=== PATIENT | male | born 1960 | race Caucasian/White ===

== ENCOUNTER 2017-07-22 07:49 | Day surgery (SDC) | payer OTHER ==
[2017-07-22 08:13] VITALS: BMI 29.7
[2017-07-22 08:48] VITALS: TEMP 97.6
[2017-07-22] MEDS ORDERED: Propofol 10 mg/ml Inj (20 ML) ONE (11:29)
[2017-07-22] MEDS ORDERED: Lactated Ringer's 1,000 ML IV ONE (11:30)
[2017-07-22 14:36] VITALS: BP 148/85; PULSE 67; RESP 15; O2SAT 99
== END 2017-07-22 13:20 | disposition home or self-care (01) ==
LOC: C.ENDO 07:49
PROVIDERS: ATTEND Internal Medicine Gastroenterology
DX: R10.13 Epigastric pain (principal); E11.9 Type 2 diabetes mellitus without complications; I10 Essential (primary) hypertension; E78.5 Hyperlipidemia, unspecified; E78.00 Pure hypercholesterolemia, unspecified; Z80.0 Family history of malignant neoplasm of digestive organs; Z83.3 Family history of diabetes mellitus; Z82.49 Family history of ischemic heart disease and other diseases of the circulatory system; F17.210 Nicotine dependence, cigarettes, uncomplicated
CPT/HCPCS: 43239; 82948; 88305; 88342; J2001; J2704; J7120

== ENCOUNTER 2017-09-02 11:56 | Inpatient (IN) | payer OTHER ==
[2017-09-02 11:57] VITALS: BMI 29.7
[2017-09-02] MEDS ORDERED: Sodium Chloride 0.9% 1,000 ML IV ONE (12:26)
--- NOTE | 2017-09-02 12:30 | C.PDOC ---
History Of Present Illness 57 year old male, with a past medical history of hypertension and diabetes, presents to the emergency department complaining of cough, congestion, headache , malaise, body aches and cough onset since yesterday. He reports cough associated with chest pain and SOB today. Patient denies taking any medication for symptoms. Patient states his is also ill in the ER sick with cough, vomiting and diarrhea. He denies any nausea, vomit or diarrhea. PMD: Alicia Rocha Time Seen by Provider: 09/02/17 12:13 Chief Complaint (Nursing): Chest Pain History Per: Patient History/Exam Limitations: no limitations Onset/Duration Of Symptoms: Days (x1) Current Symptoms Are (Timing): Still Present Exacerbating Factors: Other (coughing) Past Medical History Reviewed: Historical Data, Nursing Documentation, Vital Signs Vital Signs: Last Vital Signs Temp 100.0 F H 09/02/17 15:02 Pulse 112 H 09/02/17 15:02 Resp 16 09/02/17 15:02 BP 112/79 09/02/17 15:02 Pulse Ox 96 09/02/17 16:26 - Medical History PMH: COPD (NEWLY DX COPD), Diabetes, Gastritis, Gastrointestinal Ulcer, HTN, Hypercholesterolemia Surgical History: No Surg Hx - [facility] Procedures COLONOSCOPY (07/06/13) GROUP PSYCHOTHERAPY (03/24/16) INDIVIDUAL PSYCHOTHERAPY, COGNITIVE-BEHAVIORAL (03/24/16) LOCAL EXCIS BREAST LES (06/14/13) OTHER SKIN & SUBQ I D (01/21/13) PERCUTAN NEEDLE BIOPSY OF BREAST (05/30/13) Family History: States: Unknown Family Hx - Social History Hx Tobacco Use: Yes Hx Alcohol Use: Yes Hx Substance Use: No - Immunization History Hx Tetanus Toxoid Vaccination: No Hx Influenza Vaccination: No Hx Pneumococcal Vaccination: No Review Of Systems Constitutional: Positive for: Malaise ENT: Positive for: Nose Congestion Cardiovascular: Positive for: Chest Pain (w/ cough) Respiratory: Positive for: Cough, Shortness of Breath, Pleuritic Pain. Negative for: Sputum, Wheezing Gastrointestinal: Negative for: Nausea, Vomiting, Diarrhea Neurological: Positive for: Headache Physical Exam - Physical Exam Appears: Non-toxic, No Acute Distress Skin: Normal Color, Warm, Dry Head: Atraumatic, Normacephalic Eye(s): bilateral: Normal Inspection, PERRL, EOMI Ear(s): Bilateral: Normal Nose: Normal Oral Mucosa: Moist Throat: Normal Neck: Normal ROM Lymphatic: Normal Exam, No Adenopathy Chest: Symmetrical, No Tenderness Cardiovascular: Other (tachycardic) Respiratory: No Rales, Rhonchi, No Wheezing Gastrointestinal/Abdominal: Normal Exam, Bowel Sounds, Soft, No Tenderness, No Distention, No Guarding Back: Normal Inspection, No CVA Tenderness Extremity: Normal ROM, No Pedal Edema, No Deformity, No Swelling Pulses: Left Radial: Normal Neurological/Psych: Oriented x3, Normal Speech Gait: Steady ED Course And Treatment - Laboratory Results Result Diagrams: 09/02/17 12:40 09/02/17 12:40 Lab Interpretation: Abnormal ECG: Interpreted By Me, Viewed By Me ECG Rhythm: Sinus Tachycardia ECG Interpretation: No Acute Changes Rate From EC O2 Sat by Pulse Oximetry: 96 (RA) Pulse Ox Interpretation: Normal Progress Note: 12:45 CXR. FINDINGS: LUNGS: No active pulmonary disease. PLEURA: No significant pleural effusion identified. No pneumothorax apparent. CARDIOVASCULAR: Normal. OSSEOUS STRUCTURES: No significant abnormalities. VISUALIZED UPPER ABDOMEN: Normal. OTHER FINDINGS: None. IMPRESSION: No active disease. Medical Decision Making Medical Decision Making: Initial Impression: Fever, cough congestion Plan: --EKG --Labs --Chest two views (PA/LAT) [RAD] --Duoneb 3 ml IH Q15M --Sodium Chloride 1L bolus --Urinalysis Progress: Labs reviewed and abnormal, showing leukocytosis and bands. Ordered VBG and cultures. Still pending UA and Flu Labs show lactate of 3.4. Code sepsis called. Additional orders placed for IV fluids as per protocol Patient evaluated at bedside and reports feeling slightly better, hemodynamically stable. Disposition - Disposition Disposition: HOSPITALIZED Disposition Time: 15:00 Condition: STABLE - POA Present On Arrival: Poor Glycemic Control Core Measure Indicators: Code Sepsis - Clinical Impression Clinical Impression: Urinary tract infection - Scribe Statement The provider has reviewed the documentation as recorded by the Adalid Huang Decision To Admit - Pt Status Changed To: Hospital Disposition Of: Inpatient - Admit Certification Admit to Inpatient:: After my assessment, the patient will require hospitalization for at least two midnights. This is because of the severity of symptoms shown, intensity of services needed, and/or the medical risk in this patient being treated as an outpatient. - InPatient: Physician Admission Certification: I certify that this patient requires 2 or more midnights of care for the following reason:: Patient with fever, tachycardia, abnormal labs including leukocytosis and bandemia. code sepsis. infectious source is urinary, patient has prior infections. Patient needs IV abx - . Bed Request Type: Regular Admitting Physician: Santi Najera Patient Diagnosis: Urinary tract infection
[2017-09-02 12:45] LABS: BASO % 0.4 % (0.0-2.0); EOS % 0.3 % (0.0-4.0); HEMOGLOBIN 13.9 g/dL (12.0-18.0); LYMPH # 0.5 K/uL (1.0-4.3); LYMPH % 4.3 % (20.0-40.0); MEAN CELL VOLUME 84.2 fL (80.0-94.0); MEAN CORPUSCULAR HEMOGLOBIN 30.2 pg (27.0-31.0); MEAN CORPUSCULAR HGB CONC 35.9 g/dL (33.0-37.0); MEAN PLATELET VOLUME 8.7 fL (7.2-11.7); MONO # 0.5 K/uL (0.0-0.8); MONO % 4.7 % (0.0-10.0); NEUT # 10.2 K/uL (1.8-7.0); NEUT % 90.3 % (50.0-75.0); PLATELET COUNT 186 K/uL (130-400); RBC 4.61 Mil/uL (4.40-5.90); RED CELL DISTRIBUTION WIDTH 13.2 % (11.5-14.5); WHITE BLOOD COUNT 11.2 K/uL (4.8-10.8)
--- NOTE | 2017-09-02 12:46 | RAD ---
HISTORY: SOB, cough COMPARISON: 05/19/2013 TECHNIQUE: Chest PA and lateral FINDINGS: LUNGS: No active pulmonary disease. PLEURA: No significant pleural effusion identified. No pneumothorax apparent. CARDIOVASCULAR: Normal. OSSEOUS STRUCTURES: No significant abnormalities. VISUALIZED UPPER ABDOMEN: Normal. OTHER FINDINGS: None. IMPRESSION: No active disease.
[2017-09-02 13:02] LABS: ALB/GLOB RATIO 1.2 (1.0-2.1); ALBUMIN 4.3 g/dL (3.5-5.0); ALT/SGPT 56 U/L (21-72); AST/SGOT 44 U/L (17-59); BLOOD UREA NITROGEN 17 mg/dL (9-20); CALCIUM 9.3 mg/dl (8.6-10.4); GFR AFRICAN-AMERICAN > 60; GFR NON-AFRICAN AMERICAN > 60
[2017-09-02] MEDS: Albuterol-Ipratrop 3 mg / 0.5 (3 ml) UD IH SCH ×2 (13:04→13:24)
[2017-09-02 13:08] LABS: B-TYPE NATRIURETIC PEPTIDE 67.5 pg/mL (0-900)
[2017-09-02 13:14] LABS: BANDS 23 % (0-2); EOSINOPHIL 1 % (0-4); LYMPHOCYTE 7 % (20-40); MONOCYTE 2 % (0-10); NEUTROPHIL 67 % (50-75); PLATELET ESTIMATE NORMAL (NORMAL); TOTAL CELLS COUNTED 100
[2017-09-02] MEDS ORDERED: Sodium Chloride 0.9% 1,000 ML ONE (13:14)
[2017-09-02] MEDS ORDERED: Albuterol-Ipratrop 3 mg / 0.5 (3 ml) UD ONE (13:18)
[2017-09-02 13:25] LABS: INR 1.1; PROTHROMBIN TIME 12.4 SECONDS (9.7-12.2)
[2017-09-02 14:17] LABS: VENOUS BLOOD GAS PCO2 28 mmHg (40-60); VENOUS BLOOD GAS PO2 103 mm/Hg (30-55); VENOUS BLOOD PH 7.47 (7.32-7.43)
[2017-09-02 14:20] LABS: SQUAMOUS EPITHIAL 2 /hpf (0-5); URINE BACTERIA FEW (<OCC); URINE BILIRUBIN NEGATIVE (NEGATIVE); URINE BLOOD 1+ (NEGATIVE); URINE CLARITY Hazy (Clear); URINE COLOR Yellow (YELLOW); URINE GLUCOSE (UA) 3+ mg/dL (Normal); URINE LEUKOCYTE ESTERASE 3+ Leu/uL (Negative); URINE PROTEIN 1+ mg/dL (NEGATIVE); URINE UROBILINOGEN NORMAL mg/dL (0.2-1.0)
[2017-09-02] MEDS ORDERED: cefTRIAXone IV 1 gm in Dextros 50 ML IVPB STA (14:24)
[2017-09-02] MEDS ORDERED: SODIUM CHLORIDE 0.9% IV SCH (14:30)
[2017-09-02] MEDS ORDERED: cefTRIAXone IV 1 gm in Dextros 50 ML IVPB ONE (14:38)
[2017-09-02] MEDS ORDERED: Sodium Chloride 0.9% 1,000 ML IV SCH (15:45)
[2017-09-02] MEDS ORDERED: Albuterol-Ipratrop 20 mcg/actuation (4 g) IH SCH (16:15)
[2017-09-02] MEDS: Piperacillin/Tazobact 3.375 GM in Sodium Chloride 0.9% 100 ML IVPB SCH ×2 (16:21→22:53)
[2017-09-02] MEDS ORDERED: Magnesium Sulfate 1 gm in D5W 1 GM/100 ML BAG IVPB SCH (16:30)
[2017-09-02] MEDS: Vancomycin 1 gm/NS 200 ml 1 GM/200 ML BAG IVPB SCH (17:04)
[2017-09-02] MEDS: (Novolog) Insulin Aspart, Recombinant 100 u/ml 10 ml vial SC SCH ×2 (17:05→21:57)
[2017-09-02] MEDS ORDERED: SODIUM CHLORIDE 0.9% IV ONE (17:31)
[2017-09-02 17:46] LABS: VENOUS BLOOD GAS BASE EXCESS -2.5 mmol/L (0.0-2.0); VENOUS BLOOD GAS PCO2 35 mmHg (40-60); VENOUS BLOOD GAS PO2 49 mm/Hg (30-55)
--- NOTE | 2017-09-02 17:54 | CP.PCM.HP ---
<Bianka Hoover - Last Filed: 09/02/17 18:35> History of Present Illness - History of Present Illness History of Present Illness: CC: Cough and flu like symptoms HPI: Patient is a 57 year old male with past medical history of hypertension, HLD and diabetes who presents to the ED with complaint of productive cough ( white mucous), runny nose and bodyache that started yesterday. Patient reports associate symptoms of chest discomfort with cough, headache, vomiting episode x1 and chills. Patient reports that he took some cough syrup, which provided mild relieve. Patient admits chest discomfort, chills, cough, nausea, vomiting X1, headache and bodyaches. In addition, patient reports that his was just recently discharge from the hospital after treatment for flu. PMHx: hypertension, HLD and diabetes PSHx: Left breast excision, Buttocks furuncle removal FHx: Father (Cirrhosis, at age 47 yrs), mother ( Asthma, DM and heart problems ) Medications: Metformin 1,000mg PO BID, Lisinopril 2.5mg PO daily, simvastatin 40mg PO HS, ASA 81mg PO daily, protonix 40mg PO daily Allergies: NKDA Social hx: lives with . 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 Used tobacco for 10 years, 1ppd, Social ETOH (5 beers per weekend) and occasional marijuana use Present on Admission - Present on Admission Any Indicators Present on Admission: No Review of Systems - Constitutional Constitutional: Chills, Headache, Malaise, Weakness. absent: Fever - EENT Eyes: absent: Blurred Vision, Change in Vision Ears: absent: Dizziness - Cardiovascular Cardiovascular: Dyspnea. absent: Chest Pain, Chest Pain at Rest, Dyspnea on Exertion, Edema, Lightheadedness, Orthopnea, Palpitations, Syncope - Respiratory Respiratory: Cough, Pain with Coughing. absent: Hemoptysis, Dyspnea on Exertion , Wheezing, Snoring - Gastrointestinal Gastrointestinal: Vomiting. absent: Abdominal Pain, Cramping, Diarrhea, Loose Stools, Nausea - Musculoskeletal Musculoskeletal: Myalgias - Neurological Neurological: Headaches. absent: Dizziness - Endocrine Endocrine: Fatigue. absent: Palpitations Past Patient History - Past Medical History & Family History Past Medical History?: Yes - Past Social History Smoking Status: Light Smoker < 10 Cigarettes Daily - CARDIAC Hx Hypercholesterolemia: Yes Hx Hypertension: Yes - PULMONARY Hx Chronic Obstructive Pulmonary Disease (COPD): Yes (NEWLY DX COPD) - HEENT Hx HEENT Problems: No Other/Comment: BIFOCALS - RENAL Hx Chronic Kidney Disease: No - ENDOCRINE/METABOLIC Hx Endocrine Disorders: Yes Hx Diabetes Mellitus Type 2: Yes - INTEGUMENTARY Hx Dermatological Problems: Yes Other/Comment: VERTIGLIO - MUSCULOSKELETAL/RHEUMATOLOGICAL Hx Fractures: No - GASTROINTESTINAL Hx Gastritis: Yes - PSYCHIATRIC Hx Substance Use: No - SURGICAL HISTORY Hx Surgeries: Yes Other/Comment: ABCESS REMOVED BUTTOCK. RIGHT BREAST BEGNIGN TUMOR REMOVED. - ANESTHESIA Hx Anesthesia: Yes Hx Anesthesia Reactions: No Hx Malignant Hyperthermia: No Meds Allergies/Adverse Reactions: Allergies Allergy/AdvReac Type Severity Reaction Status Date / Time No Known Allergies Allergy Verified 09/02/17 12:22 Physical Exam - Constitutional Appears: No Acute Distress - Head Exam Head Exam: ATRAUMATIC, NORMAL INSPECTION - Eye Exam Eye Exam: EOMI, Normal appearance, PERRL - ENT Exam ENT Exam: Mucous Membranes Moist - Respiratory Exam Respiratory Exam: Clear to Auscultation Bilateral, NORMAL BREATHING PATTERN. absent: Decreased Breath Sounds, Rales, Rhonchi, Wheezes, Respiratory Distress, Stridor - Cardiovascular Exam Cardiovascular Exam: Tachycardia, REGULAR RHYTHM, +S1, +S2. absent: Systolic Murmur - GI/Abdominal Exam GI & Abdominal Exam: Normal Bowel Sounds, Soft. absent: Tenderness - Extremities Exam Extremities exam: Positive for: normal inspection. Negative for: calf tenderness, pedal edema - Neurological Exam Neurological exam: Alert, Oriented x3 - Psychiatric Exam Psychiatric exam: Normal Affect - Skin Skin Exam: Normal Color Results - Vital Signs Recent Vital Signs: Last Vital Signs Temp 100.0 F H 09/02/17 15:02 Pulse 112 H 09/02/17 15:02 Resp 16 09/02/17 15:02 BP 112/79 09/02/17 15:02 Pulse Ox 96 09/02/17 16:31 - Labs Result Diagrams: 09/02/17 12:40 09/02/17 12:40 Labs: Laboratory Results - last 24 hr 09/02/17 09/02/17 09/02/17 12:08 12:40 12:40 WBC 11.2 H RBC 4.61 Hgb 13.9 Hct 38.8 MCV 84.2 MCH 30.2 MCHC 35.9 RDW 13.2 Plt Count 186 MPV 8.7 Neut % (Auto) 90.3 H Lymph % (Auto) 4.3 L [place] % (Auto) 4.7 Eos % (Auto) 0.3 Baso % (Auto) 0.4 Neut # (Auto) 10.2 H Lymph # (Auto) 0.5 L [place] # (Auto) 0.5 Eos # (Auto) 0.0 Baso # (Auto) 0.0 Neutrophils % (Manual) 67 Band Neutrophils % 23 H* Lymphocytes % (Manual) 7 L Monocytes % (Manual) 2 Eosinophils % (Manual) 1 Differential Comment Platelet Estimate Normal PT 12.4 H INR 1.1 APTT 27 pO2 VBG pH VBG pCO2 VBG HCO3 VBG Total CO2 VBG O2 Sat (Calc) VBG Base Excess VBG Potassium Glucose Lactate Sodium Potassium Chloride Carbon Dioxide Anion Gap BUN Creatinine Est GFR ( Amer) Est GFR (Non-Af Amer) POC Glucose (mg/dL) 234 H Random Glucose Calcium Phosphorus Magnesium Total Bilirubin AST ALT Alkaline Phosphatase NT-Pro-B Natriuret Pep Total Protein Albumin Globulin Albumin/Globulin Ratio Venous Blood Potassium Urine Color Urine Clarity Urine pH Ur Specific [place] Urine Protein Urine Glucose (UA) Urine Ketones Urine Blood Urine Nitrate Urine Bilirubin Urine Urobilinogen Ur Leukocyte Esterase Urine WBC (Auto) Urine RBC (Auto) Ur Squamous Epith Cells Urine Bacteria Influenza Typ A,B (EIA) 09/02/17 09/02/17 09/02/17 12:40 14:05 14:09 WBC RBC Hgb Hct MCV MCH MCHC RDW Plt Count MPV Neut % (Auto) Lymph % (Auto) [place] % (Auto) Eos % (Auto) Baso % (Auto) Neut # (Auto) Lymph # (Auto) [place] # (Auto) Eos # (Auto) Baso # (Auto) Neutrophils % (Manual) Band Neutrophils % Lymphocytes % (Manual) Monocytes % (Manual) Eosinophils % (Manual) Differential Comment Platelet Estimate PT INR APTT pO2 VBG pH VBG pCO2 VBG HCO3 VBG Total CO2 VBG O2 Sat (Calc) VBG Base Excess VBG Potassium Glucose Lactate Sodium 135 Potassium 4.0 Chloride 100 Carbon Dioxide 19 L Anion Gap 21 H BUN 17 Creatinine 0.7 L Est GFR ( Amer) > 60 Est GFR (Non-Af Amer) > 60 POC Glucose (mg/dL) Random Glucose 243 H Calcium 9.3 Phosphorus Magnesium Total Bilirubin 0.9 AST 44 ALT 56 Alkaline Phosphatase 62 NT-Pro-B Natriuret Pep 67.5 Total Protein 7.9 Albumin 4.3 Globulin 3.6 Albumin/Globulin Ratio 1.2 Venous Blood Potassium Urine Color Yellow Urine Clarity Hazy Urine pH 5.0 Ur Specific [place] 1.023 Urine Protein 1+ H Urine Glucose (UA) 3+ H Urine Ketones Negative Urine Blood 1+ H Urine Nitrate Negative Urine Bilirubin Negative Urine Urobilinogen Normal Ur Leukocyte Esterase 3+ H Urine WBC (Auto) 88 H Urine RBC (Auto) 4 H Ur Squamous Epith Cells 2 Urine Bacteria Few H Influenza Typ A,B (EIA) Negative for flu a/b 09/02/17 09/02/17 14:14 14:59 WBC RBC Hgb Hct MCV MCH MCHC RDW Plt Count MPV Neut % (Auto) Lymph % (Auto) [place] % (Auto) Eos % (Auto) Baso % (Auto) Neut # (Auto) Lymph # (Auto) [place] # (Auto) Eos # (Auto) Baso # (Auto) Neutrophils % (Manual) Band Neutrophils % Lymphocytes % (Manual) Monocytes % (Manual) Eosinophils % (Manual) Differential Comment Platelet Estimate PT INR APTT pO2 103 H VBG pH 7.47 H VBG pCO2 28 L VBG HCO3 23.4 VBG Total CO2 21.3 L VBG O2 Sat (Calc) 99.4 H VBG Base Excess -2.0 L VBG Potassium 3.7 Glucose 229 H Lactate 3.8 H Sodium 137.0 Potassium Chloride 104.0 Carbon Dioxide Anion Gap BUN Creatinine Est GFR ( Amer) Est GFR (Non-Af Amer) POC Glucose (mg/dL) Random Glucose Calcium Phosphorus 1.8 L Magnesium 1.1 L Total Bilirubin AST ALT Alkaline Phosphatase NT-Pro-B Natriuret Pep Total Protein Albumin Globulin Albumin/Globulin Ratio Venous Blood Potassium 3.7 Urine Color Urine Clarity Urine pH Ur Specific [place] Urine Protein Urine Glucose (UA) Urine Ketones Urine Blood Urine Nitrate Urine Bilirubin Urine Urobilinogen Ur Leukocyte Esterase Urine WBC (Auto) Urine RBC (Auto) Ur Squamous Epith Cells Urine Bacteria Influenza Typ A,B (EIA) Assessment & Plan (1) Sepsis Assessment and Plan: Possibly secondary to UT1 On admission: UA: Nitrate negative, LE:3+, WBC:88` Lactate: 3.8-->3.0, continue to monitor Febrile: Tmax (100.4) and Tacycardia (112) Management: * NS @ 150mls/hr * Vanco 1gm IV daily * Zosyn 3.375gm IV Q6H * Tylenol 650mg PO Q6H prn (fever>100.4) Status: Acute (2) Cough Assessment and Plan: Associated with shortness of breath: * Robitussin DM 10ml PO Q4H PRN * Home medication: Combivent 1 puff RQ12H * f/U Strep pneumonaie, legionella, mycoplasma Status: Acute (3) UTI (urinary tract infection) Assessment and Plan: UA: Nitrate negative, LE:3+, WBC:88 f/u urine culture, blood culture * NS @ 150mls/hr * Vanco 1gm IV daily * Zosyn 3.375gm IV Q6H Status: Acute (4) Flu-like symptoms Assessment and Plan: Rapid flu test negative Tamiflu 75mg PO BID Status: Acute (5) Hypertension Assessment and Plan: Continue home medication: Lisinopril 2.5mg PO daily Status: Acute (6) Hyperlipidemia Assessment and Plan: Crestor 10mg PO daily Status: Acute (7) Diabetes mellitus Assessment and Plan: f/U HgbA1C Accuchecks Metformin 1000mg PO BID ISS- Low dose Hypoglycemia protocol Status: Acute (8) Electrolyte disturbance Assessment and Plan: Hypomagnesemia and hypophosphatemia * Mg sulfate 1GM IV Q4H, 2 doses * Neutra-Phos 1 packet q6h 2 doses * monitor with am labs Status: Acute (9) Prophylactic measure Assessment and Plan: GI: Protonix 40mg PO daily DVT: scds Aspirin 81mg PO daily Heart healthy diet All plans and management discussed with Dr. Najera Status: Acute <Santi Najera H - Last Filed: 09/03/17 07:11> Results - Vital Signs Recent Vital Signs: Last Vital Signs Temp 98.2 F 09/03/17 00:09 Pulse 111 H 09/03/17 00:09 Resp 20 09/03/17 00:09 BP 167/91 H 09/03/17 00:09 Pulse Ox 96 09/03/17 00:09 - Labs Result Diagrams: 09/02/17 12:40 09/02/17 12:40 Labs: Laboratory Results - last 24 hr 09/02/17 09/02/17 09/02/17 12:08 12:40 12:40 WBC 11.2 H RBC 4.61 Hgb 13.9 Hct 38.8 MCV 84.2 MCH 30.2 MCHC 35.9 RDW 13.2 Plt Count 186 MPV 8.7 Neut % (Auto) 90.3 H Lymph % (Auto) 4.3 L [place] % (Auto) 4.7 Eos % (Auto) 0.3 Baso % (Auto) 0.4 Neut # (Auto) 10.2 H Lymph # (Auto) 0.5 L [place] # (Auto) 0.5 Eos # (Auto) 0.0 Baso # (Auto) 0.0 Neutrophils % (Manual) 67 Band Neutrophils % 23 H* Lymphocytes % (Manual) 7 L Monocytes % (Manual) 2 Eosinophils % (Manual) 1 Differential Comment Platelet Estimate Normal PT 12.4 H INR 1.1 APTT 27 pO2 VBG pH VBG pCO2 VBG HCO3 VBG Total CO2 VBG O2 Sat (Calc) VBG Base Excess VBG Potassium Glucose Lactate Sodium Potassium Chloride Carbon Dioxide Anion Gap BUN Creatinine Est GFR ( Amer) Est GFR (Non-Af Amer) POC Glucose (mg/dL) 234 H Random Glucose Calcium Phosphorus Magnesium Total Bilirubin AST ALT Alkaline Phosphatase NT-Pro-B Natriuret Pep Total Protein Albumin Globulin Albumin/Globulin Ratio Venous Blood Potassium Urine Color Urine Clarity Urine pH Ur Specific [place] Urine Protein Urine Glucose (UA) Urine Ketones Urine Blood Urine Nitrate Urine Bilirubin Urine Urobilinogen Ur Leukocyte Esterase Urine WBC (Auto) Urine RBC (Auto) Ur Squamous Epith Cells Urine Bacteria Influenza Typ A,B (EIA) Mycoplasma pneumon IgM Grp A Beta Strep Ag 09/02/17 09/02/17 09/02/17 12:40 14:05 14:09 WBC RBC Hgb Hct MCV MCH MCHC RDW Plt Count MPV Neut % (Auto) Lymph % (Auto) [place] % (Auto) Eos % (Auto) Baso % (Auto) Neut # (Auto) Lymph # (Auto) [place] # (Auto) Eos # (Auto) Baso # (Auto) Neutrophils % (Manual) Band Neutrophils % Lymphocytes % (Manual) Monocytes % (Manual) Eosinophils % (Manual) Differential Comment Platelet Estimate PT INR APTT pO2 VBG pH VBG pCO2 VBG HCO3 VBG Total CO2 VBG O2 Sat (Calc) VBG Base Excess VBG Potassium Glucose Lactate Sodium 135 Potassium 4.0 Chloride 100 Carbon Dioxide 19 L Anion Gap 21 H BUN 17 Creatinine 0.7 L Est GFR ( Amer) > 60 Est GFR (Non-Af Amer) > 60 POC Glucose (mg/dL) Random Glucose 243 H Calcium 9.3 Phosphorus Magnesium Total Bilirubin 0.9 AST 44 ALT 56 Alkaline Phosphatase 62 NT-Pro-B Natriuret Pep 67.5 Total Protein 7.9 Albumin 4.3 Globulin 3.6 Albumin/Globulin Ratio 1.2 Venous Blood Potassium Urine Color Yellow Urine Clarity Hazy Urine pH 5.0 Ur Specific [place] 1.023 Urine Protein 1+ H Urine Glucose (UA) 3+ H Urine Ketones Negative Urine Blood 1+ H Urine Nitrate Negative Urine Bilirubin Negative Urine Urobilinogen Normal Ur Leukocyte Esterase 3+ H Urine WBC (Auto) 88 H Urine RBC (Auto) 4 H Ur Squamous Epith Cells 2 Urine Bacteria Few H Influenza Typ A,B (EIA) Negative for flu a/b Mycoplasma pneumon IgM Grp A Beta Strep Ag 09/02/17 09/02/17 09/02/17 14:14 14:59 16:59 WBC RBC Hgb Hct MCV MCH MCHC RDW Plt Count MPV Neut % (Auto) Lymph % (Auto) [place] % (Auto) Eos % (Auto) Baso % (Auto) Neut # (Auto) Lymph # (Auto) [place] # (Auto) Eos # (Auto) Baso # (Auto) Neutrophils % (Manual) Band Neutrophils % Lymphocytes % (Manual) Monocytes % (Manual) Eosinophils % (Manual) Differential Comment Platelet Estimate PT INR APTT pO2 103 H VBG pH 7.47 H VBG pCO2 28 L VBG HCO3 23.4 VBG Total CO2 21.3 L VBG O2 Sat (Calc) 99.4 H VBG Base Excess -2.0 L VBG Potassium 3.7 Glucose 229 H Lactate 3.8 H Sodium 137.0 Potassium Chloride 104.0 Carbon Dioxide Anion Gap BUN Creatinine Est GFR ( Amer) Est GFR (Non-Af Amer) POC Glucose (mg/dL) 168 H Random Glucose Calcium Phosphorus 1.8 L Magnesium 1.1 L Total Bilirubin AST ALT Alkaline Phosphatase NT-Pro-B Natriuret Pep Total Protein Albumin Globulin Albumin/Globulin Ratio Venous Blood Potassium 3.7 Urine Color Urine Clarity Urine pH Ur Specific [place] Urine Protein Urine Glucose (UA) Urine Ketones Urine Blood Urine Nitrate Urine Bilirubin Urine Urobilinogen Ur Leukocyte Esterase Urine WBC (Auto) Urine RBC (Auto) Ur Squamous Epith Cells Urine Bacteria Influenza Typ A,B (EIA) Mycoplasma pneumon IgM Grp A Beta Strep Ag 09/02/17 09/02/17 09/02/17 17:43 17:59 18:32 WBC RBC Hgb Hct MCV MCH MCHC RDW Plt Count MPV Neut % (Auto) Lymph % (Auto) [place] % (Auto) Eos % (Auto) Baso % (Auto) Neut # (Auto) Lymph # (Auto) [place] # (Auto) Eos # (Auto) Baso # (Auto) Neutrophils % (Manual) Band Neutrophils % Lymphocytes % (Manual) Monocytes % (Manual) Eosinophils % (Manual) Differential Comment Platelet Estimate PT INR APTT pO2 49 VBG pH 7.40 VBG pCO2 35 L VBG HCO3 22.6 VBG Total CO2 22.8 VBG O2 Sat (Calc) 90.9 H VBG Base Excess -2.5 L VBG Potassium 3.7 Glucose 174 H Lactate 3.0 H Sodium 139.0 Potassium Chloride 105.0 Carbon Dioxide Anion Gap BUN Creatinine Est GFR ( Amer) Est GFR (Non-Af Amer) POC Glucose (mg/dL) Random Glucose Calcium Phosphorus Magnesium Total Bilirubin AST ALT Alkaline Phosphatase NT-Pro-B Natriuret Pep Total Protein Albumin Globulin Albumin/Globulin Ratio Venous Blood Potassium 3.7 Urine Color Urine Clarity Urine pH Ur Specific [place] Urine Protein Urine Glucose (UA) Urine Ketones Urine Blood Urine Nitrate Urine Bilirubin Urine Urobilinogen Ur Leukocyte Esterase Urine WBC (Auto) Urine RBC (Auto) Ur Squamous Epith Cells Urine Bacteria Influenza Typ A,B (EIA) Mycoplasma pneumon IgM Negative Grp A Beta Strep Ag Negative 09/02/17 21:14 WBC RBC Hgb Hct MCV MCH MCHC RDW Plt Count MPV Neut % (Auto) Lymph % (Auto) [place] % (Auto) Eos % (Auto) Baso % (Auto) Neut # (Auto) Lymph # (Auto) [place] # (Auto) Eos # (Auto) Baso # (Auto) Neutrophils % (Manual) Band Neutrophils % Lymphocytes % (Manual) Monocytes % (Manual) Eosinophils % (Manual) Differential Comment Platelet Estimate PT INR APTT pO2 VBG pH VBG pCO2 VBG HCO3 VBG Total CO2 VBG O2 Sat (Calc) VBG Base Excess VBG Potassium Glucose Lactate Sodium Potassium Chloride Carbon Dioxide Anion Gap BUN Creatinine Est GFR ( Amer) Est GFR (Non-Af Amer) POC Glucose (mg/dL) 157 H Random Glucose Calcium Phosphorus Magnesium Total Bilirubin AST ALT Alkaline Phosphatase NT-Pro-B Natriuret Pep Total Protein Albumin Globulin Albumin/Globulin Ratio Venous Blood Potassium Urine Color Urine Clarity Urine pH Ur Specific [place] Urine Protein Urine Glucose (UA) Urine Ketones Urine Blood Urine Nitrate Urine Bilirubin Urine Urobilinogen Ur Leukocyte Esterase Urine WBC (Auto) Urine RBC (Auto) Ur Squamous Epith Cells Urine Bacteria Influenza Typ A,B (EIA) Mycoplasma pneumon IgM Grp A Beta Strep Ag Attending/Attestation - Attestation I have personally seen and examined this patient.: Yes I have fully participated in the care of the patient.: Yes I have reviewed all pertinent clinical information: Yes Notes (Text): 09/03/17 07:11 Medical attending: Patient was seen and examined by me, agree with the above note by manager medical. The patient was not in any acute distress when we saw him. However he did explained to us that he was doing well until very recently when he felt a sudden onset of fevers, coughing congestion, chills as well as whole-body aches. He reports that family members are also sick as well. She tested negative for the fluid the emergency room. This being said he still has a CBC showing significant bandemia. A urinalysis was done showing that he may have some sort of UTI. He also had documented fevers are recorded in the emergency room as well So at this time were to monitor the urine cultures, blood cultures, we will try to get a sputum culture as well also be atypical studies such as mycoplasma IgM. He'll be started on prophylactic IV antibiotics Zosyn. Because of what he tells us what I also placed the patient on Tamiflu twice a day was Tylenol and intravenous fluids. We got a chest x-ray looked okay. Patient denies any drug use. Thank you very much, Santi Najera
[2017-09-02] MEDS: Potassium & Sodium Phosphate PO SCH ×2 (17:59→21:50)
[2017-09-02] MEDS: Sodium Chloride 0.9% 1,000 ML IV SCH ×2 (17:59→21:57)
[2017-09-02] MEDS: Magnesium Sulfate 1 gm in D5W 1 GM/100 ML BAG IVPB SCH ×2 (17:59→21:31)
[2017-09-02 18:03] VITALS: RESP 20
[2017-09-02] MEDS ORDERED: Glucagon Recombinant 1 mg Inj IM PRN (18:54)
[2017-09-02] MEDS ORDERED: Dextrose 50% SYRINGE Inj (50 ml) IVP PRN (18:54)
[2017-09-02] MEDS ORDERED: Albuterol-Ipratrop 3 mg / 0.5 (3 ml) UD INH SCH (20:00)
[2017-09-02] MEDS: guaiFENesin DM 200 mg-20 mg/10 ml UD PO PRN (21:51)
[2017-09-03] MEDS: Magnesium Sulfate 1 gm in D5W 1 GM/100 ML BAG IVPB SCH ×2 (00:23→04:30)
[2017-09-03] MEDS: Piperacillin/Tazobact 3.375 GM in Sodium Chloride 0.9% 100 ML IVPB SCH ×4 (05:30→22:47)
[2017-09-03] MEDS: guaiFENesin DM 200 mg-20 mg/10 ml UD PO PRN ×2 (05:59→10:26)
[2017-09-03] MEDS: Sodium Chloride 0.9% 1,000 ML IV SCH (06:01)
[2017-09-03 08:09] LABS: BASO % 0.6 % (0.0-2.0); EOS # 0.1 K/uL (0.0-0.7); EOS % 1.3 % (0.0-4.0); HEMOGLOBIN 13.3 g/dL (12.0-18.0); LYMPH # 0.9 K/uL (1.0-4.3); LYMPH % 11.6 % (20.0-40.0); MEAN CELL VOLUME 85.2 fL (80.0-94.0); MEAN CORPUSCULAR HEMOGLOBIN 30.5 pg (27.0-31.0); MEAN CORPUSCULAR HGB CONC 35.9 g/dL (33.0-37.0); MEAN PLATELET VOLUME 8.8 fL (7.2-11.7); MONO # 0.6 K/uL (0.0-0.8); NEUT # 6.3 K/uL (1.8-7.0); NEUT % 78.5 % (50.0-75.0); NRBC % 0.1 % (0.0-2.0); RBC 4.35 Mil/uL (4.40-5.90); RED CELL DISTRIBUTION WIDTH 13.7 % (11.5-14.5); WHITE BLOOD COUNT 8.1 K/uL (4.8-10.8)
[2017-09-03 08:28] LABS: ALB/GLOB RATIO 1.1 (1.0-2.1); ALBUMIN 3.9 g/dL (3.5-5.0); ALT/SGPT 44 U/L (21-72); AST/SGOT 32 U/L (17-59); BLOOD UREA NITROGEN 11 mg/dL (9-20); CALCIUM 8.6 mg/dl (8.6-10.4); GFR AFRICAN-AMERICAN > 60; GFR NON-AFRICAN AMERICAN > 60; HDL CHOLESTEROL 42 mg/dL (30-70)
[2017-09-03 08:36] LABS: LDL CHOLESTEROL 86 mg/dL (0-129)
[2017-09-03] MEDS: (Novolog) Insulin Aspart, Recombinant 100 u/ml 10 ml vial SC SCH ×4 (08:48→21:53)
[2017-09-03] MEDS ORDERED: Enoxaparin 30 mg Syringe SC SCH (10:00)
[2017-09-03] MEDS: Saccharomyces Boulardi 250 mg Cap PO SCH ×2 (10:23→18:18)
[2017-09-03] MEDS: Pantoprazole 40 mg EC Tab PO SCH (10:23)
[2017-09-03] MEDS: Enoxaparin 40 mg Syringe SC SCH (10:23)
[2017-09-03 16:06] VITALS: TEMP 97.8
--- NOTE | 2017-09-03 16:07 | CP.PCM.PN ---
<Bianka Hoover - Last Filed: 09/03/17 15:54> Subjective - Date & Time of Evaluation Date of Evaluation: 09/03/17 Time of Evaluation: 09:00 - Subjective Subjective: Medicine progress note ( Dr. Juno Cevallos) Patient was seen and examined at bedside. Patient reports that he is doing well with improving symptoms. Patient denies SOB, palpitations, nausea, vomiting, fever, chills but still admits to non-productive cough, chest discomfort with cough and diaphragm discomfort with cough. Objective - Vital Signs/Intake and Output Vital Signs (last 24 hours): Temp Pulse Resp BP Pulse Ox 98 F 94 H 20 158/94 H 97 09/03/17 07:51 09/03/17 07:51 09/03/17 07:51 09/03/17 07:51 09/03/17 07:51 Intake and Output: 09/03/17 09/03/17 06:59 18:59 Intake Total 1600 2890 Output Total 300 Balance 1300 2890 - Medications Medications: Current Medications Acetaminophen (Tylenol 325mg Tab) 650 mg PO Q6 [facility] Stop: 09/04/17 08:00 Last Admin: 09/03/17 11:47 Dose: 650 mg Albuterol/Ipratropium (Duoneb 3 Mg/0.5 Mg (3 Ml) Ud) 3 ml INH RQ6 [facility] Aspirin (Aspirin Chewable) 81 mg PO DAILY [facility] Last Admin: 09/03/17 10:23 Dose: 81 mg Dextrose (Dextrose 50% Inj) 0 ml IVP .STAT PRN; Protocol PRN Reason: Hypoglycemia Protocol Dextrose (Glutose 15) 0 gm PO .ONCE PRN; Protocol PRN Reason: Hypoglycemia Protocol Enoxaparin Sodium (Lovenox) 40 mg SC DAILY [facility] Last Admin: 09/03/17 10:23 Dose: 40 mg Glucagon (Glucagen Diagnostic Kit) 0 mg IM .STAT PRN; Protocol PRN Reason: Hypoglycemia Protocol Guaifenesin/Dextromethorphan (Robitussin Dm) 10 ml PO Q4H PRN PRN Reason: Cough and congestion Last Admin: 09/03/17 10:26 Dose: 10 ml Piperacillin Sod/Tazobactam (Sod 3.375 gm/ Sodium Chloride) 100 mls @ 200 mls/ hr IVPB Q6H [facility] PRN Reason: Protocol Last Admin: 09/03/17 11:42 Dose: 200 mls/hr Vancomycin/Sodium Chloride (Vancomycin 1 Gm/Ns 200 Ml) 1 gm in 200 mls @ 133 mls/hr IVPB Q24H [facility] PRN Reason: Protocol Stop: 09/07/17 18:01 Last Admin: 09/02/17 17:04 Dose: 133 mls/hr Dextrose (Dextrose 5% In Water 1000 Ml) 1,000 mls @ 0 mls/hr IV .Q0M PRN; Protocol; Per Protocol PRN Reason: Hypoglycemia Protocol Insulin Aspart (Novolog) 0 unit SC ACHS [facility] PRN Reason: Protocol Last Admin: 09/03/17 11:43 Dose: 1 unit Lisinopril (Zestril) 2.5 mg PO ONCE ONE Stop: 09/03/17 16:01 Lisinopril (Zestril) 5 mg PO DAILY [facility] Oseltamivir Phosphate (Tamiflu Cap) 75 mg PO BID [facility] PRN Reason: Protocol Stop: 09/07/17 16:10 Last Admin: 09/03/17 10:23 Dose: 75 mg Pantoprazole Sodium (Protonix Ec Tab) 40 mg PO DAILY [facility] Last Admin: 09/03/17 10:23 Dose: 40 mg Rosuvastatin Calcium (Crestor) 10 mg PO HS [facility] Last Admin: 09/02/17 21:39 Dose: 10 mg Saccharomyces Boulardii (Florastor) 250 mg PO BID [facility] Last Admin: 09/03/17 10:23 Dose: 250 mg - Labs Labs: 09/03/17 07:55 09/03/17 07:55 PT 12.4 SECONDS (9.7-12.2) H 09/02/17 12:40 INR 1.1 09/02/17 12:40 APTT 27 SECONDS (21-34) 09/02/17 12:40 - Constitutional Appears: Well, No Acute Distress - Head Exam Head Exam: ATRAUMATIC, NORMAL INSPECTION - Eye Exam Eye Exam: EOMI, Normal appearance - ENT Exam ENT Exam: Mucous Membranes Moist - Respiratory Exam Respiratory Exam: Clear to Ausculation Bilateral, NORMAL BREATHING PATTERN. absent: Decreased Breath Sounds, Rhonchi, Wheezes, Respiratory Distress - Cardiovascular Exam Cardiovascular Exam: Tachycardia, REGULAR RHYTHM, +S1, +S2. absent: Murmur - GI/Abdominal Exam GI & Abdominal Exam: Soft, Normal Bowel Sounds. absent: Firm, Guarding, Rigid, Tenderness - Extremities Exam Extremities Exam: Normal Inspection. absent: Calf Tenderness, Pedal Edema - Neurological Exam Neurological Exam: Alert, Awake, Oriented x3 - Psychiatric Exam Psychiatric exam: Normal Affect - Skin Skin Exam: Normal Color Assessment and Plan (1) Sepsis Assessment & Plan: Possibly secondary to UT1 WBC: 11.2---->8.1, normalized UA: Nitrate negative, LE:3+, WBC:88` Urine culture: Gram negative rods; awaiting sensitivity Lactate: 3.8-->3.0---> 1.0, trended down AFebrile for almost 24 hours since admission. Management: * NS @ 150mls/hr--> Stopped (09/03/17) * Vanco 1gm IV daily * Zosyn 3.375gm IV Q6H * Florastor 250mg PO BID * Tylenol 650mg PO Q6H prn (fever>100.4) Status: Acute (2) Cough Assessment & Plan: Associated with shortness of breath: * Robitussin DM 10ml PO Q4H PRN * Home medication: Combivent 1 puff RQ12H * Group A strep, mycoplasma: Negative Status: Acute (3) UTI (urinary tract infection) Assessment & Plan: UA: Nitrate negative, LE:3+, WBC:88 Urine culture: Negative F/u Blood culture * NS @ 150mls/hr--> stopped 09/03/17 * Vanco 1gm IV daily * Zosyn 3.375gm IV Q6H * Florastor 250mg PO BID Status: Acute (4) Flu-like symptoms Assessment & Plan: Rapid flu test negative Tamiflu 75mg PO BID Status: Acute (5) Hypertension Assessment & Plan: Continue home medication: Lisinopril 2.5mg PO daily ----increased to 5mg PO daily Status: Acute (6) Hyperlipidemia Assessment & Plan: Lipid panel: Crestor 10mg PO daily Status: Acute (7) Diabetes mellitus Assessment & Plan: f/U HgbA1C Accuchecks Metformin 1000mg PO BID (Held) ISS- Low dose Hypoglycemia protocol Status: Acute (8) Vitiligo Assessment & Plan: Evaluate for associated autoimmune disease F/u TSH and Free T4 Status: Acute (9) Electrolyte disturbance Assessment & Plan: Resolving Hypomagnesemia and hypophosphatemia * Mg sulfate 1GM IV Q4H, 2 doses * Neutra-Phos 1 packet q6h 2 doses * monitor with am labs Status: Acute (10) Prophylactic measure Assessment & Plan: GI: Protonix 40mg PO daily DVT: scds Aspirin 81mg PO daily Heart healthy diet All plans and management discussed with Dr. Slava Cevallos Status: Acute <Juno Cevallos - Last Filed: 09/03/17 17:52> Objective - Vital Signs/Intake and Output Vital Signs (last 24 hours): Temp Pulse Resp BP Pulse Ox 97.8 F 83 20 143/77 95 09/03/17 16:04 09/03/17 16:04 09/03/17 16:04 09/03/17 16:04 09/03/17 16:04 Intake and Output: 09/03/17 09/03/17 06:59 18:59 Intake Total 1600 2890 Output Total 300 Balance 1300 2890 - Medications Medications: Current Medications Acetaminophen (Tylenol 325mg Tab) 650 mg PO Q6 [facility] Stop: 09/04/17 08:00 Last Admin: 09/03/17 11:47 Dose: 650 mg Albuterol/Ipratropium (Duoneb 3 Mg/0.5 Mg (3 Ml) Ud) 3 ml INH RQ6 [facility] Aspirin (Aspirin Chewable) 81 mg PO DAILY [facility] Last Admin: 09/03/17 10:23 Dose: 81 mg Dextrose (Dextrose 50% Inj) 0 ml IVP .STAT PRN; Protocol PRN Reason: Hypoglycemia Protocol Dextrose (Glutose 15) 0 gm PO .ONCE PRN; Protocol PRN Reason: Hypoglycemia Protocol Enoxaparin Sodium (Lovenox) 40 mg SC DAILY [facility] Last Admin: 09/03/17 10:23 Dose: 40 mg Glucagon (Glucagen Diagnostic Kit) 0 mg IM .STAT PRN; Protocol PRN Reason: Hypoglycemia Protocol Guaifenesin/Dextromethorphan (Robitussin Dm) 10 ml PO Q4H PRN PRN Reason: Cough and congestion Last Admin: 09/03/17 10:26 Dose: 10 ml Piperacillin Sod/Tazobactam (Sod 3.375 gm/ Sodium Chloride) 100 mls @ 200 mls/ hr IVPB Q6H [facility] PRN Reason: Protocol Last Admin: 09/03/17 11:42 Dose: 200 mls/hr Vancomycin/Sodium Chloride (Vancomycin 1 Gm/Ns 200 Ml) 1 gm in 200 mls @ 133 mls/hr IVPB Q24H [facility] PRN Reason: Protocol Stop: 09/07/17 18:01 Last Admin: 09/02/17 17:04 Dose: 133 mls/hr Dextrose (Dextrose 5% In Water 1000 Ml) 1,000 mls @ 0 mls/hr IV .Q0M PRN; Protocol; Per Protocol PRN Reason: Hypoglycemia Protocol Insulin Aspart (Novolog) 0 unit SC ACHS [facility] PRN Reason: Protocol Lisinopril (Zestril) 5 mg PO DAILY [facility] Oseltamivir Phosphate (Tamiflu Cap) 75 mg PO BID [facility] PRN Reason: Protocol Stop: 09/07/17 16:10 Last Admin: 09/03/17 10:23 Dose: 75 mg Pantoprazole Sodium (Protonix Ec Tab) 40 mg PO DAILY [facility] Last Admin: 09/03/17 10:23 Dose: 40 mg Rosuvastatin Calcium (Crestor) 10 mg PO HS [facility] Last Admin: 09/02/17 21:39 Dose: 10 mg Saccharomyces Boulardii (Florastor) 250 mg PO BID [facility] Last Admin: 09/03/17 10:23 Dose: 250 mg - Labs Labs: 09/03/17 07:55 09/03/17 07:55 PT 12.4 SECONDS (9.7-12.2) H 09/02/17 12:40 INR 1.1 09/02/17 12:40 APTT 27 SECONDS (21-34) 09/02/17 12:40 Attending/Attestation - Attestation I have personally seen and examined this patient.: Yes I have fully participated in the care of the patient.: Yes I have reviewed all pertinent clinical information, including history, physical exam and plan: Yes Notes (Text): 09/03/17 17:50 Patient was seen and examined at 1:45 PM 09/03/17 369 B Exam, assessment and plan were gone over with the resident. As long as patient continues to improve will discharge morning 09/04/17. Juno Cevallos D.O.
[2017-09-03] MEDS: Vancomycin 1 gm/NS 200 ml 1 GM/200 ML BAG IVPB SCH (18:26)
[2017-09-04] MEDS: Piperacillin/Tazobact 3.375 GM in Sodium Chloride 0.9% 100 ML IVPB SCH (05:45)
[2017-09-04 07:32] VITALS: BP 136/78; PULSE 71; O2SAT 98
[2017-09-04] MEDS: (Novolog) Insulin Aspart, Recombinant 100 u/ml 10 ml vial SC SCH ×2 (08:18→11:37)
[2017-09-04 08:27] LABS: BASO % 0.8 % (0.0-2.0); EOS # 0.2 K/uL (0.0-0.7); EOS % 3.5 % (0.0-4.0); HEMOGLOBIN 13.6 g/dL (12.0-18.0); LYMPH # 1.3 K/uL (1.0-4.3); LYMPH % 24.3 % (20.0-40.0); MEAN CELL VOLUME 85.8 fL (80.0-94.0); MEAN CORPUSCULAR HEMOGLOBIN 30.3 pg (27.0-31.0); MEAN CORPUSCULAR HGB CONC 35.3 g/dL (33.0-37.0); MEAN PLATELET VOLUME 8.8 fL (7.2-11.7); MONO # 0.6 K/uL (0.0-0.8); MONO % 11.8 % (0.0-10.0); NEUT # 3.3 K/uL (1.8-7.0); NEUT % 59.6 % (50.0-75.0); NRBC % 0.1 % (0.0-2.0); RBC 4.47 Mil/uL (4.40-5.90); RED CELL DISTRIBUTION WIDTH 13.7 % (11.5-14.5); WHITE BLOOD COUNT 5.5 K/uL (4.8-10.8)
--- NOTE | 2017-09-04 08:41 | CP.PCM.PN ---
Subjective - Date & Time of Evaluation Date of Evaluation: 09/04/17 Time of Evaluation: 08:20 - Subjective Subjective: Hospitalist Progress Note Patient was seen and examined at 8:20 AM 369 B 09/04/17 Upon FULL ROS NO dysphagia/odynopahgia NO soreness in throat NO cough NO sinus/nasal congestion NO fever/chills NO muscle aches/pains NO joint pain NO chest pain/palpations NO SOB NO abdominal pain NO n/v/d/c NO burning pain with urination NO SOLORIO NO lightheadedness/dizziness NO paresthesias but started to feel some tingling the bilateral medial pedal surface of feet this morning Exam: General: AAOX3, NAD HEENT: NCA, EOMI, PERRLA, NO cervical/supraclavicular/submandibular lymphadenopathy, NO pharyngeal erythema/exudate, Nasal Turbinates are nonerythematous/nonedematous, Oral Mucosa is moist Cardio: NS1 and NS2, NO M/R/G Resp: CTA B/L, NO R/R/W GI: BSx4, Soft, NT, NO HSM, NO guarding/rebound tenderness Ext: Pulses are strong and equal, Capillary Refill is 2 seconds, NO edema Neuro: CN II through XII are grossly intact Vitals are stable Presenting complaints have essentially resolved Patient is stable for discharge to home The following instructions were explained to patient and a copy will need to be provided to him upon discharge: 1). Schedule follow up with your primary care physician Dr. Rocha to take place in the next 7 to 10 days. 2). You stated that you had enough of the following medications so please continue to take them as instructed by Dr. Rocha: Lisinopril Simvastatin Metformin Aspirin Alogliptin Combivent 3). You were provided with the following prescriptions that you should have filled at your pharmacy on your way home from the hospital today: Ciprofloxacin 500 mg, 1 tablet by mouth 2x/day (breakfast and dinner) until finished, Dispense #10, NO refills Tamiflu 75 mg, 1 tablet by mouth 2x/day (10 AM and 6 PM) until finished starting tonight at 6 PM, Dispense #6, NO refills 4). You were provided with a work note for you to return to work on 09/07/17. 5). 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 Please make sure that you when take the probiotic that it is NOT within 2 hours of Ciprofloxacin dose. 6). Do NOT lift anything heavy or exercise while on Ciprofloxacin. 7). Stay well hydrated with water and make sure that you are drinking 3 liters per day. 8). Please take care and be well. Juno Cevallos D.O. Objective - Vital Signs/Intake and Output Vital Signs (last 24 hours): Temp Pulse Resp BP Pulse Ox 97.8 F 71 20 136/78 98 09/04/17 07:30 09/04/17 07:30 09/04/17 07:30 09/04/17 07:30 09/04/17 07:30 - Medications Medications: Current Medications Albuterol/Ipratropium (Duoneb 3 Mg/0.5 Mg (3 Ml) Ud) 3 ml INH RQ6 [facility] Aspirin (Aspirin Chewable) 81 mg PO DAILY [facility] Last Admin: 09/03/17 10:23 Dose: 81 mg Dextrose (Dextrose 50% Inj) 0 ml IVP .STAT PRN; Protocol PRN Reason: Hypoglycemia Protocol Dextrose (Glutose 15) 0 gm PO .ONCE PRN; Protocol PRN Reason: Hypoglycemia Protocol Enoxaparin Sodium (Lovenox) 40 mg SC DAILY [facility] Last Admin: 09/03/17 10:23 Dose: 40 mg Glucagon (Glucagen Diagnostic Kit) 0 mg IM .STAT PRN; Protocol PRN Reason: Hypoglycemia Protocol Guaifenesin/Dextromethorphan (Robitussin Dm) 10 ml PO Q4H PRN PRN Reason: Cough and congestion Last Admin: 09/03/17 10:26 Dose: 10 ml Piperacillin Sod/Tazobactam (Sod 3.375 gm/ Sodium Chloride) 100 mls @ 200 mls/ hr IVPB Q6H [facility] PRN Reason: Protocol Last Admin: 09/04/17 05:45 Dose: 200 mls/hr Vancomycin/Sodium Chloride (Vancomycin 1 Gm/Ns 200 Ml) 1 gm in 200 mls @ 133 mls/hr IVPB Q24H [facility] PRN Reason: Protocol Stop: 09/07/17 18:01 Last Admin: 03/08/18 18:26 Dose: 133 mls/hr Dextrose (Dextrose 5% In Water 1000 Ml) 1,000 mls @ 0 mls/hr IV .Q0M PRN; Protocol; Per Protocol PRN Reason: Hypoglycemia Protocol Insulin Aspart (Novolog) 0 unit SC ACHS [facility] PRN Reason: Protocol Last Admin: 09/04/17 08:18 Dose: 2 unit Lisinopril (Zestril) 5 mg PO DAILY [facility] Oseltamivir Phosphate (Tamiflu Cap) 75 mg PO BID [facility] PRN Reason: Protocol Stop: 09/07/17 16:10 Last Admin: 09/03/17 18:19 Dose: 75 mg Pantoprazole Sodium (Protonix Ec Tab) 40 mg PO DAILY [facility] Last Admin: 09/03/17 10:23 Dose: 40 mg Rosuvastatin Calcium (Crestor) 10 mg PO HS [facility] Last Admin: 09/03/17 21:52 Dose: 10 mg Saccharomyces Boulardii (Florastor) 250 mg PO BID [facility] Last Admin: 09/03/17 18:18 Dose: 250 mg - Labs Labs: 09/04/17 08:14 09/03/17 07:55 PT 12.4 SECONDS (9.7-12.2) H 09/02/17 12:40 INR 1.1 09/02/17 12:40 APTT 27 SECONDS (21-34) 09/02/17 12:40
[2017-09-04 08:49] LABS: ALB/GLOB RATIO 1.1 (1.0-2.1); ALBUMIN 4.1 g/dL (3.5-5.0); ALT/SGPT 53 U/L (21-72); AST/SGOT 47 U/L (17-59); BLOOD UREA NITROGEN 13 mg/dL (9-20); CALCIUM 9.3 mg/dl (8.6-10.4); GFR AFRICAN-AMERICAN > 60; GFR NON-AFRICAN AMERICAN > 60
--- NOTE | 2017-09-04 09:05 | CP.PCM.DIS ---
<Bianka Hoover E - Last Filed: 09/04/17 12:20> Provider - Provider Date of Admission: 09/02/17 15:05 Attending physician: Juno Cevallos MD Time Spent in preparation of Discharge (in minutes): 45 Diagnosis - Discharge Diagnosis (1) Sepsis Status: Acute (2) Cough Status: Acute (3) UTI (urinary tract infection) Status: Acute (4) Flu-like symptoms Status: Acute (5) Hypertension Status: Chronic (6) Hyperlipidemia Status: Chronic (7) Diabetes mellitus Status: Chronic (8) Vitiligo Status: Chronic (9) Electrolyte disturbance Status: Acute (10) Prophylactic measure Status: Acute Hospital Course - Lab Results Lab Results: Micro Results 09/02/17 13:45 Blood Blood Culture - Preliminary NO GROWTH AFTER 24 HOURS 09/02/17 14:15 Blood Blood Culture - Preliminary NO GROWTH AFTER 24 HOURS 09/02/17 17:59 Throat Group A Strep Throat Culture - Final NO BETA STREP GROUP A ISOLATED. 09/02/17 15:30 Urine Urine Culture - Preliminary Gram Negative Dann Most Recent Lab Values WBC 5.5 K/uL (4.8-10.8) 09/04/17 08:14 RBC 4.47 Mil/uL (4.40-5.90) 09/04/17 08:14 Hgb 13.6 g/dL (12.0-18.0) 09/04/17 08:14 Hct 38.4 % (35.0-51.0) 09/04/17 08:14 MCV 85.8 fL (80.0-94.0) 09/04/17 08:14 MCH 30.3 pg (27.0-31.0) 09/04/17 08:14 MCHC 35.3 g/dL (33.0-37.0) 09/04/17 08:14 RDW 13.7 % (11.5-14.5) 09/04/17 08:14 Plt Count 189 K/uL (130-400) 09/04/17 08:14 MPV 8.8 fL (7.2-11.7) 09/04/17 08:14 Neut % (Auto) 59.6 % (50.0-75.0) 09/04/17 08:14 Lymph % (Auto) 24.3 % (20.0-40.0) 09/04/17 08:14 Wetzel % (Auto) 11.8 % (0.0-10.0) H 09/04/17 08:14 Eos % (Auto) 3.5 % (0.0-4.0) 09/04/17 08:14 Baso % (Auto) 0.8 % (0.0-2.0) 09/04/17 08:14 Neut # (Auto) 3.3 K/uL (1.8-7.0) 09/04/17 08:14 Lymph # (Auto) 1.3 K/uL (1.0-4.3) 09/04/17 08:14 Wetzel # (Auto) 0.6 K/uL (0.0-0.8) 09/04/17 08:14 Eos # (Auto) 0.2 K/uL (0.0-0.7) 09/04/17 08:14 Baso # (Auto) 0.0 K/uL (0.0-0.2) 09/04/17 08:14 Neutrophils % (Manual) 67 % (50-75) 09/02/17 12:40 Band Neutrophils % 23 % (0-2) H* 09/02/17 12:40 Lymphocytes % (Manual) 7 % (20-40) L 09/02/17 12:40 Monocytes % (Manual) 2 % (0-10) 09/02/17 12:40 Eosinophils % (Manual) 1 % (0-4) 09/02/17 12:40 Differential Comment 09/02/17 12:40 Platelet Estimate Normal (NORMAL) 09/02/17 12:40 PT 12.4 SECONDS (9.7-12.2) H 09/02/17 12:40 INR 1.1 09/02/17 12:40 APTT 27 SECONDS (21-34) 09/02/17 12:40 pO2 49 mm/Hg (30-55) 09/02/17 17:43 VBG pH 7.40 (7.32-7.43) 09/02/17 17:43 VBG pCO2 35 mmHg (40-60) L 09/02/17 17:43 VBG HCO3 22.6 mmol/L 09/02/17 17:43 VBG Total CO2 22.8 mmol/L (22-28) 09/02/17 17:43 VBG O2 Sat (Calc) 90.9 % (40-65) H 09/02/17 17:43 VBG Base Excess -2.5 mmol/L (0.0-2.0) L 09/02/17 17:43 VBG Potassium 3.7 mmol/L (3.6-5.2) 09/02/17 17:43 Sodium 139.0 mmol/l (132-148) 09/02/17 17:43 Chloride 105.0 mmol/L (98-107) 09/02/17 17:43 Glucose 174 mg/dl (75-110) H 09/02/17 17:43 Lactate 3.0 mmol/L (0.7-2.1) H 09/02/17 17:43 Sodium 140 mmol/L (132-148) 09/04/17 08:14 Potassium 4.2 mmol/L (3.6-5.2) 09/04/17 08:14 Chloride 105 mmol/L (98-107) 09/04/17 08:14 Carbon Dioxide 21 mmol/L (22-30) L 09/04/17 08:14 Anion Gap 18 (10-20) 09/04/17 08:14 BUN 13 mg/dL (9-20) 09/04/17 08:14 Creatinine 0.7 mg/dL (0.8-1.5) L 09/04/17 08:14 Est GFR ( Amer) > 60 09/04/17 08:14 Est GFR (Non-Af Amer) > 60 09/04/17 08:14 POC Glucose (mg/dL) 178 mg/dL (65-110) H 09/04/17 05:56 Random Glucose 187 mg/dL (75-110) H 09/04/17 08:14 Hemoglobin A1c 7.7 % (4.2-6.5) H 09/03/17 16:30 Lactic Acid 1.0 mmol/L (0.7-2.1) 09/03/17 07:55 Calcium 9.3 mg/dl (8.6-10.4) 09/04/17 08:14 Phosphorus 2.8 mg/dL (2.5-4.5) 09/04/17 08:14 Magnesium 1.6 mg/dL (1.6-2.3) 09/04/17 08:14 Total Bilirubin 0.9 mg/dL (0.2-1.3) 09/04/17 08:14 AST 47 U/L (17-59) 09/04/17 08:14 ALT 53 U/L (21-72) 09/04/17 08:14 Alkaline Phosphatase 51 U/L (38-126) 09/04/17 08:14 NT-Pro-B Natriuret Pep 67.5 pg/mL (0-900) 09/02/17 12:40 Total Protein 7.9 g/dL (6.3-8.3) 09/04/17 08:14 Albumin 4.1 g/dL (3.5-5.0) 09/04/17 08:14 Globulin 3.8 gm/dL (2.2-3.9) 09/04/17 08:14 Albumin/Globulin Ratio 1.1 (1.0-2.1) 09/04/17 08:14 Triglycerides 107 mg/dL (0-149) D 09/03/17 07:55 Cholesterol 159 mg/dL (0-199) 09/03/17 07:55 LDL Cholesterol Direct 86 mg/dL (0-129) 09/03/17 07:55 HDL Cholesterol 42 mg/dL (30-70) 09/03/17 07:55 Free T4 1.03 ng/dL (0.78-2.19) 09/04/17 08:14 Venous Blood Potassium 3.7 mmol/L (3.6-5.2) 09/02/17 17:43 Urine Color Yellow (YELLOW) 09/02/17 14:09 Urine Clarity Hazy (Clear) 09/02/17 14:09 Urine pH 5.0 (5.0-8.0) 09/02/17 14:09 Ur Specific [place] 1.023 (1.003-1.030) 09/02/17 14:09 Urine Protein 1+ mg/dL (NEGATIVE) H 09/02/17 14:09 Urine Glucose (UA) 3+ mg/dL (Normal) H 09/02/17 14:09 Urine Ketones Negative mg/dL (NEGATIVE) 09/02/17 14:09 Urine Blood 1+ (NEGATIVE) H 09/02/17 14:09 Urine Nitrate Negative (NEGATIVE) 09/02/17 14:09 Urine Bilirubin Negative (NEGATIVE) 09/02/17 14:09 Urine Urobilinogen Normal mg/dL (0.2-1.0) 09/02/17 14:09 Ur Leukocyte Esterase 3+ Roxana/uL (Negative) H 09/02/17 14:09 Urine WBC (Auto) 88 /hpf (0-5) H 09/02/17 14:09 Urine RBC (Auto) 4 /hpf (0-3) H 09/02/17 14:09 Ur Squamous Epith Cells 2 /hpf (0-5) 09/02/17 14:09 Urine Bacteria Few (<OCC) H 09/02/17 14:09 HIV 1&2 Antibody Screen Negative (NEGATIVE) 09/03/17 11:12 Influenza Typ A,B (EIA) Negative for flu a/b (NEGATIVE) 09/02/17 14:05 Mycoplasma pneumon IgM Negative (NEGATIVE) 09/02/17 18:32 Grp A Beta Strep Ag Negative (NEGATIVE) 09/02/17 17:59 - Hospital Course Hospital Course: HPI (As per admission): Patient is a 57 year old male with past medical history of hypertension , HLD and diabetes who presents to the ED with complaint of productive cough ( white mucous), runny nose and bodyache that started yesterday. Patient reports associate symptoms of chest discomfort with cough, headache, vomiting episode x1 and chills. Patient reports that he took some cough syrup, which provided mild relieve. Patient admits chest discomfort, chills, cough, nausea, vomiting X1, headache and bodyaches. In addition, patient reports that his was just recently discharge from the hospital after treatment for flu. Hospital course: The patient was admitted with diagnosis of flu-like symptoms, cough and UTI. Patient was managed with appropriate antibiotics and medications for other acute and chronic conditions. On the second day of admission, patient's symptoms improved significantly. Over the course of admission, patient had no acute issues and remained medically stable. Patient was cleared by his medical team prior to discharge with appropriate medications and instructions. Pertinent imaging.Labs: Chest X-ray: No active disease UA: Nitrate negative, LE:3+, WBC:88 Urine culture: Positive Pneumonaie klebsiella Blood Culture: Negative This is a brief summary of event. For a complete course, please refer to the medical records Discharge Exam - Head Exam Head Exam: ATRAUMATIC, NORMAL INSPECTION - Eye Exam Eye Exam: EOMI, Normal appearance - Respiratory Exam Respiratory Exam: Clear to PA & Lateral, NORMAL BREATHING PATTERN. absent: Rales, Wheezes, Respiratory Distress - Cardiovascular Exam Cardiovascular Exam: REGULAR RHYTHM, +S1, +S2 - GI/Abdominal Exam GI & Abdominal Exam: Normal Bowel Sounds, Soft. absent: Distended, Firm, Guarding, Tenderness - Extremities Exam Extremities exam: normal inspection - Neurological Exam Neurological exam: Alert, Normal Gait, Oriented x3 - Psychiatric Exam Psychiatric exam: Normal Affect - Skin Skin Exam: Normal Color Discharge Plan - Discharge Medications Prescriptions: Oseltamivir [Tamiflu Cap] 75 mg PO BID #6 cap Oseltamivir Phosphate [Tamiflu] 75 mg PO BID #6 capsule Oseltamivir Phosphate [Tamiflu] 75 mg PO BID #6 capsule - Follow Up Plan Condition: STABLE Disposition: HOME/ ROUTINE Instructions: Smoking: Not Just Harmful to Your Lungs and Heart, Diabetes Diet , Cough, Adult (DC), Diabetes Type 2 (DC), Quitting Smoking, Vitiligo (DC), Oseltamivir, Urinary Tract Infection in Men (DC), Sepsis (DC), Hypertension (DC) Additional Instructions: The following instructions were explained to patient and a copy will need to be provided to him upon discharge: 1). Schedule follow up with your primary care physician Dr. Rocha to take place in the next 7 to 10 days. 2). You stated that you had enough of the following medications so please continue to take them as instructed by Dr. Rocha: Lisinopril Simvastatin Metformin Aspirin Alogliptin Combivent 3). You were provided with the following prescriptions that you should have filled at your pharmacy on your way home from the hospital today: Ciprofloxacin 500 mg, 1 tablet by mouth 2x/day (breakfast and dinner) until finished, Dispense #10, NO refills Tamiflu 75 mg, 1 tablet by mouth 2x/day (10 AM and 6 PM) until finished starting tonight at 6 PM, Dispense #6, NO refills 4). You were provided with a work note for you to return to work on 09/07/17. 5). 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 Please make sure that you when take the probiotic that it is NOT within 2 hours of Ciprofloxacin dose. 6). Do NOT lift anything heavy or exercise while on Ciprofloxacin. 7). Stay well hydrated with water and make sure that you are drinking 3 liters per day. 8). Please take care and be well. Juno Cevallos D.O. Referrals: Humberto Rocha MD [Staff Provider] - <Juno Cevallos - Last Filed: 09/04/17 16:43> Provider - Provider Date of Admission: 09/02/17 15:05 Attending physician: Juno Cevallos MD Hospital Course - Lab Results Lab Results: Micro Results 09/02/17 15:30 Urine Urine Culture - Final Klebsiella Pneumoniae Ssp Pneu 09/02/17 13:45 Blood Blood Culture - Preliminary NO GROWTH AFTER 24 HOURS 09/02/17 14:15 Blood Blood Culture - Preliminary NO GROWTH AFTER 24 HOURS 09/02/17 17:59 Throat Group A Strep Throat Culture - Final NO BETA STREP GROUP A ISOLATED. Most Recent Lab Values WBC 5.5 K/uL (4.8-10.8) 09/04/17 08:14 RBC 4.47 Mil/uL (4.40-5.90) 09/04/17 08:14 Hgb 13.6 g/dL (12.0-18.0) 09/04/17 08:14 Hct 38.4 % (35.0-51.0) 09/04/17 08:14 MCV 85.8 fL (80.0-94.0) 09/04/17 08:14 MCH 30.3 pg (27.0-31.0) 09/04/17 08:14 MCHC 35.3 g/dL (33.0-37.0) 09/04/17 08:14 RDW 13.7 % (11.5-14.5) 09/04/17 08:14 Plt Count 189 K/uL (130-400) 09/04/17 08:14 MPV 8.8 fL (7.2-11.7) 09/04/17 08:14 Neut % (Auto) 59.6 % (50.0-75.0) 09/04/17 08:14 Lymph % (Auto) 24.3 % (20.0-40.0) 09/04/17 08:14 Wetzel % (Auto) 11.8 % (0.0-10.0) H 09/04/17 08:14 Eos % (Auto) 3.5 % (0.0-4.0) 09/04/17 08:14 Baso % (Auto) 0.8 % (0.0-2.0) 09/04/17 08:14 Neut # (Auto) 3.3 K/uL (1.8-7.0) 09/04/17 08:14 Lymph # (Auto) 1.3 K/uL (1.0-4.3) 09/04/17 08:14 Wetzel # (Auto) 0.6 K/uL (0.0-0.8) 09/04/17 08:14 Eos # (Auto) 0.2 K/uL (0.0-0.7) 09/04/17 08:14 Baso # (Auto) 0.0 K/uL (0.0-0.2) 09/04/17 08:14 Neutrophils % (Manual) 67 % (50-75) 09/02/17 12:40 Band Neutrophils % 23 % (0-2) H* 09/02/17 12:40 Lymphocytes % (Manual) 7 % (20-40) L 09/02/17 12:40 Monocytes % (Manual) 2 % (0-10) 09/02/17 12:40 Eosinophils % (Manual) 1 % (0-4) 09/02/17 12:40 Differential Comment 09/02/17 12:40 Platelet Estimate Normal (NORMAL) 09/02/17 12:40 PT 12.4 SECONDS (9.7-12.2) H 09/02/17 12:40 INR 1.1 09/02/17 12:40 APTT 27 SECONDS (21-34) 09/02/17 12:40 pO2 49 mm/Hg (30-55) 09/02/17 17:43 VBG pH 7.40 (7.32-7.43) 09/02/17 17:43 VBG pCO2 35 mmHg (40-60) L 09/02/17 17:43 VBG HCO3 22.6 mmol/L 09/02/17 17:43 VBG Total CO2 22.8 mmol/L (22-28) 09/02/17 17:43 VBG O2 Sat (Calc) 90.9 % (40-65) H 09/02/17 17:43 VBG Base Excess -2.5 mmol/L (0.0-2.0) L 09/02/17 17:43 VBG Potassium 3.7 mmol/L (3.6-5.2) 09/02/17 17:43 Sodium 139.0 mmol/l (132-148) 09/02/17 17:43 Chloride 105.0 mmol/L (98-107) 09/02/17 17:43 Glucose 174 mg/dl (75-110) H 09/02/17 17:43 Lactate 3.0 mmol/L (0.7-2.1) H 09/02/17 17:43 Sodium 140 mmol/L (132-148) 09/04/17 08:14 Potassium 4.2 mmol/L (3.6-5.2) 09/04/17 08:14 Chloride 105 mmol/L (98-107) 09/04/17 08:14 Carbon Dioxide 21 mmol/L (22-30) L 09/04/17 08:14 Anion Gap 18 (10-20) 09/04/17 08:14 BUN 13 mg/dL (9-20) 09/04/17 08:14 Creatinine 0.7 mg/dL (0.8-1.5) L 09/04/17 08:14 Est GFR ( Amer) > 60 09/04/17 08:14 Est GFR (Non-Af Amer) > 60 09/04/17 08:14 POC Glucose (mg/dL) 183 mg/dL (65-110) H 09/04/17 11:05 Random Glucose 187 mg/dL (75-110) H 09/04/17 08:14 Hemoglobin A1c 7.7 % (4.2-6.5) H 09/03/17 16:30 Lactic Acid 1.0 mmol/L (0.7-2.1) 09/03/17 07:55 Calcium 9.3 mg/dl (8.6-10.4) 09/04/17 08:14 Phosphorus 2.8 mg/dL (2.5-4.5) 09/04/17 08:14 Magnesium 1.6 mg/dL (1.6-2.3) 09/04/17 08:14 Total Bilirubin 0.9 mg/dL (0.2-1.3) 09/04/17 08:14 AST 47 U/L (17-59) 09/04/17 08:14 ALT 53 U/L (21-72) 09/04/17 08:14 Alkaline Phosphatase 51 U/L (38-126) 09/04/17 08:14 NT-Pro-B Natriuret Pep 67.5 pg/mL (0-900) 09/02/17 12:40 Total Protein 7.9 g/dL (6.3-8.3) 09/04/17 08:14 Albumin 4.1 g/dL (3.5-5.0) 09/04/17 08:14 Globulin 3.8 gm/dL (2.2-3.9) 09/04/17 08:14 Albumin/Globulin Ratio 1.1 (1.0-2.1) 09/04/17 08:14 Triglycerides 107 mg/dL (0-149) D 09/03/17 07:55 Cholesterol 159 mg/dL (0-199) 09/03/17 07:55 LDL Cholesterol Direct 86 mg/dL (0-129) 09/03/17 07:55 HDL Cholesterol 42 mg/dL (30-70) 09/03/17 07:55 Free T4 1.03 ng/dL (0.78-2.19) 09/04/17 08:14 TSH 3rd Generation 2.36 mIU/L (0.46-4.68) 09/04/17 08:14 Venous Blood Potassium 3.7 mmol/L (3.6-5.2) 09/02/17 17:43 Urine Color Yellow (YELLOW) 09/02/17 14:09 Urine Clarity Hazy (Clear) 09/02/17 14:09 Urine pH 5.0 (5.0-8.0) 09/02/17 14:09 Ur Specific [place] 1.023 (1.003-1.030) 09/02/17 14:09 Urine Protein 1+ mg/dL (NEGATIVE) H 09/02/17 14:09 Urine Glucose (UA) 3+ mg/dL (Normal) H 09/02/17 14:09 Urine Ketones Negative mg/dL (NEGATIVE) 09/02/17 14:09 Urine Blood 1+ (NEGATIVE) H 09/02/17 14:09 Urine Nitrate Negative (NEGATIVE) 09/02/17 14:09 Urine Bilirubin Negative (NEGATIVE) 09/02/17 14:09 Urine Urobilinogen Normal mg/dL (0.2-1.0) 09/02/17 14:09 Ur Leukocyte Esterase 3+ Roxana/uL (Negative) H 09/02/17 14:09 Urine WBC (Auto) 88 /hpf (0-5) H 09/02/17 14:09 Urine RBC (Auto) 4 /hpf (0-3) H 09/02/17 14:09 Ur Squamous Epith Cells 2 /hpf (0-5) 09/02/17 14:09 Urine Bacteria Few (<OCC) H 09/02/17 14:09 HIV 1&2 Antibody Screen Negative (NEGATIVE) 09/03/17 11:12 Influenza Typ A,B (EIA) Negative for flu a/b (NEGATIVE) 09/02/17 14:05 Mycoplasma pneumon IgM Negative (NEGATIVE) 09/02/17 18:32 Grp A Beta Strep Ag Negative (NEGATIVE) 09/02/17 17:59 Attending/Attestation - Attestation I have personally seen and examined this patient.: Yes I have fully participated in the care of the patient.: Yes I have reviewed all pertinent clinical information, including history, physical exam and plan: Yes Notes (Text): 09/04/17 16:43 Please also see my progress note Exam, assessment and plan, and discharge instructions were gone over with the resident. Juno Cevallos D.O.
[2017-09-04] MEDS ORDERED: Pneumococcal 23-Valent Vaccine IM ONE (10:00)
[2017-09-04] MEDS ORDERED: Influenza Vaccine 60 mcg/0.5 mL SYR (4YR UP) IM ONE (10:00)
[2017-09-04] MEDS: Saccharomyces Boulardi 250 mg Cap PO SCH (10:02)
[2017-09-04] MEDS: Pantoprazole 40 mg EC Tab PO SCH (10:02)
[2017-09-04] MEDS: Enoxaparin 40 mg Syringe SC SCH (10:03)
[2017-09-04] MEDS: guaiFENesin DM 200 mg-20 mg/10 ml UD PO PRN (10:03)
--- NOTE | 2017-09-04 11:00 | CARD ---
APPROVED REPORT EKG Measurement Heart [id number] ID [id number] <Conclusion> Sinus tachycardia Otherwise normal ECG
== END 2017-09-04 13:49 | disposition home or self-care (01) | DRG 901 ==
LOC: C.ER 11:56 → C.9E 15:05 → C.3T 15:05
PROVIDERS: ADMIT Family Medicine; ATTEND Family Medicine
DX: A41.9 Sepsis, unspecified organism (principal); N39.0 Urinary tract infection, site not specified; J44.9 Chronic obstructive pulmonary disease, unspecified; E11.9 Type 2 diabetes mellitus without complications; I10 Essential (primary) hypertension; E83.39 Other disorders of phosphorus metabolism; E78.5 Hyperlipidemia, unspecified; E83.42 Hypomagnesemia; F12.90 Cannabis use, unspecified, uncomplicated; L80 Vitiligo; Z79.82 Long term (current) use of aspirin; Z79.84 Long term (current) use of oral hypoglycemic drugs; Z87.11 Personal history of peptic ulcer disease; Z87.891 Personal history of nicotine dependence

== ENCOUNTER 2017-10-26 13:17 | Emergency (ER) | payer OTHER ==
[2017-10-26 13:48] VITALS: BMI 26.8
[2017-10-26 13:50] VITALS: BP 120/69; PULSE 76; RESP 14; TEMP 98.1; O2SAT 98
--- NOTE | 2017-10-26 13:53 | C.PDOC ---
History Of Present Illness Patient is a 57 y/o M presenting with 2 week history of L wrist pain. Denies trauma but reports repetitive motions of lifting at work that he believes has exacerbated the pain. Reports that the pain is along the radial side and worse with movement. He reports that it is worse with grasping things or making a fist. Denies weakness. Denies swelling. Denies other complaint. Time Seen by Provider: 10/26/17 13:44 History Per: Patient History/Exam Limitations: no limitations Onset/Duration Of Symptoms: Other (2 weeks ) Current Symptoms Are (Timing): Still Present Quality: "Pain" Additional History Per: Patient Past Medical History Reviewed: Historical Data, Nursing Documentation, Vital Signs Vital Signs: Last Vital Signs Temp 98.1 F 10/26/17 13:50 Pulse 76 10/26/17 13:50 Resp 14 10/26/17 13:50 BP 120/69 10/26/17 13:50 Pulse Ox 98 10/26/17 17:21 - Medical History PMH: COPD (NEWLY DX COPD), Diabetes, Gastritis, Gastrointestinal Ulcer, HTN, Hypercholesterolemia Denies: Fractures, Hepatitis, Chronic Kidney Disease Surgical History: No Surg Hx - [facility] Procedures COLONOSCOPY (07/06/13) GROUP PSYCHOTHERAPY (03/24/16) INDIVIDUAL PSYCHOTHERAPY, COGNITIVE-BEHAVIORAL (03/24/16) LOCAL EXCIS BREAST LES (06/14/13) OTHER SKIN & SUBQ I D (01/21/13) PERCUTAN NEEDLE BIOPSY OF BREAST (05/30/13) Family History: States: Unknown Family Hx - Social History Hx Tobacco Use: Yes Hx Alcohol Use: Yes Hx Substance Use: No - Immunization History Hx Tetanus Toxoid Vaccination: No Hx Influenza Vaccination: No Hx Pneumococcal Vaccination: No Review Of Systems Constitutional: Negative for: Fever, Chills ENT: Negative for: Ear Pain Cardiovascular: Negative for: Chest Pain, Palpitations, Edema, Light Headedness Respiratory: Negative for: Cough, Shortness of Breath, SOB with Excertion, Wheezing Gastrointestinal: Negative for: Nausea, Vomiting, Abdominal Pain, Constipation Musculoskeletal: Positive for: Other (left wrist pain ) Neurological: Negative for: Weakness, Numbness, Incoordination, Change in Speech , Confusion, Seizures, Altered Mental Status, Headache Physical Exam - Physical Exam Appears: Well, Non-toxic, No Acute Distress Skin: Normal Color, Warm, Dry, No Ecchymosis, No Other (no skin breaks or erythema ) Head: Atraumatic, Normacephalic Eye(s): bilateral: Normal Inspection, PERRL, EOMI Oral Mucosa: Moist Extremity: Normal ROM, Tenderness (along left wrist, radial side ), Capillary Refill (less than 2 seconds ), Other (+finkelsteins) Pulses: Left Radial: Normal Neurological/Psych: Oriented x3, Normal Speech, Normal Sensation Gait: Steady ED Course And Treatment O2 Sat by Pulse Oximetry: 98 (on RA) Pulse Ox Interpretation: Normal - Other Rad left wrist XR X-Ray: Viewed By Me, Read By Radiologist Interpretation: PROCEDURE: Left Wrist Radiographs. . HISTORY: L wrist Pain. No history of recent/ related trauma provided. COMPARISON: None. FINDINGS: BONES: Normal. No fracture. JOINTS: Normal. No dislocation. SOFT TISSUES: Normal. OTHER FINDINGS: None. IMPRESSION: Normal left wrist radiographs. Progress Note: Left wrist XR ordered and reviewed. Motrin PO administered. Presentation consistent with tendosynovitis. Placed in a splint and instructed to follow-up wt PMD. Disposition - Disposition Disposition: HOME/ ROUTINE Disposition Time: 15:25 Condition: GOOD Additional Instructions: Follow-up with PMD within 2 days. Motrin for pain. Wear splint for comfort. Avoid overuse. Instructions: De Quervain's Tenosynovitis, Tendonitis Forms: [facility] (C[place]odian) - Clinical Impression Clinical Impression: Tendonitis, De Quervain's tenosynovitis - Scribe Statement The provider has reviewed the documentation as recorded by the Scribe (Nakita Cevallos) Provider Attestation: All medical record entries made by the Scribe were at my direction and personally dictated by me. I have reviewed the chart and agree that the record accurately reflects my personal performance of the history, physical exam, medical decision making, and the department course for this patient. I have also personally directed, reviewed, and agree with the discharge instructions and disposition.
--- NOTE | 2017-10-26 15:27 | RAD ---
PROCEDURE: Left Wrist Radiographs. HISTORY: L wrist Pain. No history of recent/ related trauma provided COMPARISON: None. FINDINGS: BONES: Normal. No fracture. JOINTS: Normal. No dislocation. SOFT TISSUES: Normal. OTHER FINDINGS: None. IMPRESSION: Normal left wrist radiographs.
== END 2017-10-26 15:49 | disposition home or self-care (01) ==
LOC: C.ER 13:17
DX: M65.4 Radial styloid tenosynovitis [de Quervain] (principal)

== ENCOUNTER 2017-12-25 10:21 | Emergency (ER) | payer OTHER ==
[2017-12-25 10:21] VITALS: BMI 26.8
[2017-12-25] MEDS ORDERED: Sodium Chloride 0.9% 1,000 ML IV ONE (10:43)
--- NOTE | 2017-12-25 10:44 | C.PDOC ---
History Of Present Illness 57 Y/O MALE PRESENTS TO ED WITH C/O DIZZINESS, GEN WEAKNESS SINCE THIS MORNING. PATIENT HAS H/O DM, PATIENT STATES HE TOOK DM MEDS BUT DID NOT EAT. 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 EXAM MILD DIST NONTOXIC NEG Time Seen by Provider: 12/25/17 10:30 Chief Complaint (Nursing): Dizziness/Lightheaded History Per: Patient History/Exam Limitations: no limitations Onset/Duration Of Symptoms: Hrs Current Symptoms Are (Timing): Still Present Past Medical History Reviewed: Historical Data, Nursing Documentation, Vital Signs Vital Signs: Last Vital Signs Temp 97.5 F L 12/25/17 10:25 Pulse 91 H 12/25/17 12:10 Resp 22 12/25/17 12:10 BP 176/95 H 12/25/17 12:10 Pulse Ox 100 12/25/17 12:10 - Medical History PMH: COPD, Diabetes, Gastritis, Gastrointestinal Ulcer, HTN, Hypercholesterolemia Surgical History: No Surg Hx - [facility] Procedures COLONOSCOPY (07/06/13) GROUP PSYCHOTHERAPY (03/24/16) INDIVIDUAL PSYCHOTHERAPY, COGNITIVE-BEHAVIORAL (03/24/16) LOCAL EXCIS BREAST LES (06/14/13) OTHER SKIN & SUBQ I D (01/21/13) PERCUTAN NEEDLE BIOPSY OF BREAST (05/30/13) Family History: States: No Known Family Hx - Social History Hx Tobacco Use: Yes Hx Alcohol Use: Yes Hx Substance Use: No - Immunization History Hx Tetanus Toxoid Vaccination: No Hx Influenza Vaccination: No Hx Pneumococcal Vaccination: No Review Of Systems Constitutional: Negative for: Fever, Chills Cardiovascular: Negative for: Chest Pain Respiratory: Negative for: Shortness of Breath Neurological: Positive for: Weakness. Negative for: Numbness Physical Exam - Physical Exam Appears: Non-toxic, Other (In mild distress) Skin: Warm, Dry, No Rash Head: Atraumatic, Normacephalic Eye(s): bilateral: Normal Inspection Oral Mucosa: Moist Neck: Normal ROM, Supple Cardiovascular: Rhythm Regular Respiratory: Normal Breath Sounds, No Rales, No Rhonchi, No Wheezing Gastrointestinal/Abdominal: Soft, No Tenderness, No Guarding, No Rebound Extremity: Normal ROM, Capillary Refill (<2 seconds) Neurological/Psych: Oriented x3, Normal Speech ED Course And Treatment - Laboratory Results Result Diagrams: 12/25/17 10:50 12/25/17 10:50 ECG: Interpreted By Me ECG Rhythm: Sinus Rhythm ECG Interpretation: Normal Rate From EC (BPM) O2 Sat by Pulse Oximetry: 99 (RA) Pulse Ox Interpretation: Normal Reevaluation Time: 12:48 Reassessment Condition: Improved (AMBUL WO DIFF, +UO. PS FEELS BETTER, WISHES DC HOME. REQUESTING RETURN TO WORK 12/26) Disposition Counseled Patient/Family Regarding: Studies Performed, Diagnosis, Need For Followup - Disposition Referrals: YOUR,PMD [Other] Disposition: HOME/ ROUTINE Disposition Time: 12:50 Condition: IMPROVED Instructions: Dehydration, Adult (DC), Heat Exhaustion and Heat Stroke (DC) Forms: [facility] (German), Work Excuse - Clinical Impression Clinical Impression: Near syncope, Diabetes mellitus, Heat exhaustion - Scribe Statement The provider has reviewed the documentation as recorded by the Scribdelfino Franco All medical record entries made by the Nenaibdelfino were at my direction and personally dictated by me. I have reviewed the chart and agree that the record accurately reflects my personal performance of the history, physical exam, medical decision making, and the department course for this patient. I have also personally directed, reviewed, and agree with the discharge instructions and disposition.
[2017-12-25] MEDS ORDERED: Sodium Chloride 0.9% 1,000 ML ONE (10:49)
[2017-12-25 10:59] LABS: BASO # 0.1 K/uL (0.0-0.2); BASO % 0.8 % (0.0-2.0); EOS # 0.2 K/uL (0.0-0.7); EOS % 1.6 % (0.0-4.0); HEMOGLOBIN 15.6 g/dL (12.0-18.0); LYMPH # 1.4 K/uL (1.0-4.3); LYMPH % 13.2 % (20.0-40.0); MEAN CELL VOLUME 85.1 fL (80.0-94.0); MEAN CORPUSCULAR HEMOGLOBIN 29.9 pg (27.0-31.0); MEAN CORPUSCULAR HGB CONC 35.2 g/dL (33.0-37.0); MEAN PLATELET VOLUME 8.9 fL (7.2-11.7); MONO # 0.7 K/uL (0.0-0.8); NEUT # 8.2 K/uL (1.8-7.0); NEUT % 77.4 % (50.0-75.0); NRBC % 0.5 % (0.0-2.0); RBC 5.2 Mil/uL (4.40-5.90); RED CELL DISTRIBUTION WIDTH 13.7 % (11.5-14.5); WHITE BLOOD COUNT 10.6 K/uL (4.8-10.8)
[2017-12-25 11:08] LABS: BLOOD UREA NITROGEN 18 mg/dL (9-20); CALCIUM 9.5 mg/dl (8.6-10.4); GFR AFRICAN-AMERICAN > 60; GFR NON-AFRICAN AMERICAN > 60
[2017-12-25] MEDS ORDERED: Albuterol-Ipratrop 3 mg / 0.5 (3 ml) UD IH STA (11:09)
[2017-12-25] MEDS ORDERED: Albuterol-Ipratrop 3 mg / 0.5 (3 ml) UD ONE (11:13)
[2017-12-25 12:11] VITALS: PULSE 91
[2017-12-25 12:51] VITALS: O2SAT 99
[2017-12-25 13:00] VITALS: BP 150/90; RESP 18; TEMP 97.9
--- NOTE | 2017-12-28 18:34 | CARD ---
APPROVED REPORT EKG Measurement Heart [id number] <Conclusion> Normal sinus rhythm Minimal voltage criteria for LVH, may be normal variant Borderline ECG
== END 2017-12-25 13:01 | disposition home or self-care (01) ==
LOC: C.ER 10:21
DX: R55 Syncope and collapse (principal); E11.9 Type 2 diabetes mellitus without complications; T67.5XXA Heat exhaustion, unspecified, initial encounter; X58.XXXA Exposure to other specified factors, initial encounter
CPT/HCPCS: 80048; 82948; 85025; 93005; 94150; 94640; 96360; 99285; J7030